=== PATIENT | female | born 1950 | race Caucasian/White ===

== ENCOUNTER → 2017-02-15 | Outpatient (CLI) | payer MEDICARE, OTHER ==
--- NOTE | 2017-02-18 17:27 | MAM ---
EXAM DESCRIPTION: 3D Screening BILATERAL : Digital Mammography. CLINICAL HISTORY: 67 years Female SCREENING . No complaints. No family history breast cancer. Postmenopausal. No HRT. COMPARISON: New Baseline study at this facility. No prior reports available. TECHNIQUE: Bilateral CC and MLO projection full-field images, 3-D tomosynthesis digital mammographic technique. Also bilateral synthesized CC/ MLO full-field images. CAD not utilized. FINDINGS: The breast parenchymal density pattern is: Scattered areas of fibroglandular density. No skin thickening or nipple retraction bilateral solitary microcalcifications. Group of calcifications which appear to be rounded but may be associated with a soft tissue mass in the anterior third of the right breast at the 930 clock position, approximately 5 cm from the nipple. No focal, stellate mass or density, focal asymmetry , and no suspicious microcalcifications left breast. IMPRESSION: BI-RADS CATEGORY: 0 - INCOMPLETE- Need additional imaging evaluation. FOLLOW-UP: Recall for additional imaging: Digital two-dimensional full-field and spot magnification of the group of microcalcifications in the right breast, CC and MLO projections. 3-D tomosynthesis full field LM images right breast. Targeted right breast ultrasound. Written communication concerning the IMPRESSION and Follow-up, will be mailed to the patient and referring health care provider. Electronically signed by: Jermaine Faustin MD 02/18/2017 5:[address] [facility]
== END ==
LOC: MAMMO 14:34
PROVIDERS: ATTEND Emergency Medicine
DX: Z12.31 Encounter for screening mammogram for malignant neoplasm of breast (principal)
CPT/HCPCS: 77063; G0202

== ENCOUNTER → 2017-03-31 | Outpatient (CLI) | payer OTHER ==
--- NOTE | 2017-03-31 12:43 | MAM ---
EXAM DESCRIPTION: 3D Diagnostic, Right: Digital Mammography CLINICAL HISTORY: 67 yearsFemaleABNORMAL MAMMO abnormal group of calcifications in the anterior right breast.. COMPARISON: 3-D tomosynthesis bilateral screening mammography 02/15/2017. Targeted right breast ultrasound following this examination. Report from prior examination also reviewed. TECHNIQUE: Right breast LM projection full-field images, 3-D tomosynthesis digital mammographic technique. Also right breast synthesized LM full-field images. 2-D digital spot compression anterior superior lateral right breast in the CC and LM projections. CAD utilized for 2-D images. FINDINGS: Right breast parenchymal density pattern is: Scattered areas of fibroglandular density. No skin thickening or nipple retraction . The spot compression images show a small group of heterogeneous and pleomorphic calcifications of varying CCA and sizes at the 1000 clock position of the anterior right breast in the upper outer quadrant, approximately 5 cm from the nipple. Soft tissue density associated with these calcifications with partially well-defined and partially spiculated margins. Tissue is similar density to the surrounding fibroglandular tissues. This tissue appears almost two-dimensional on the LM full-field images ULTRASOUND: Scanning at the 1000 clock position of the right breast, 5 cm from the nipple. Poorly-defined hypoechoic tissue is visualized measuring approximately 7.2 x 8.2 mm. Difficult to determine if parallel orientation to the skin or chest wall. Echogenic regions assumed to represent calcifications. Significant posterior acoustic shadowing. Mass is not vascular. No adjacent discrete solid mass or cyst. No skin changes or parenchymal edema. IMPRESSION: BI-RADS CATEGORY: 4 - SUSPICIOUS. SUB - CATEGORY 4B: MODERATE SUSPICION FOR MALIGNANCY. Please refer to digital diagnostic right breast mammographic examination and report on this visit. The FINDINGS and various follow-up plans were reviewed in person with the patient, and patient's daughter, Yessica Shabazz, after the examination. Written communication explaining the IMPRESSION and follow-up will be mailed to the patient and referring care provider. CRITICAL COMMUNICATION: The critical value was discussed directly by phone with Dr. Nolan Jackson at approximately 1220 hours, on March 31, 2017. Electronically signed by: Jermaine Faustin MD 03/31/2017 12:[address] OFFICE ASSISTANT
--- NOTE | 2017-03-31 12:49 | US ---
EXAM DESCRIPTION: Breast,Right: Ultrasound CLINICAL HISTORY: 67 yearsFemaleABNORMAL MAMMO. COMPARISON: Digital 2-D/3-D diagnostic mammogram right breast on this visit. TECHNIQUE: Transcutaneous scanning of the upper outer quadrant right breast utilizing two-dimensional and Doppler modes. Scanning performed by the director of graduate admissions and Dr. Faustin. FINDINGS: Scanning at the 1000 clock position of the right breast, 5 cm from the nipple. Poorly-defined hypoechoic tissue is visualized measuring approximately 7.2 x 8.2 mm. Difficult to determine if parallel orientation to the skin or chest wall. Echogenic regions assumed to represent calcifications. Significant posterior acoustic shadowing. Mass is not vascular. No adjacent discrete solid mass or cyst. No skin changes or parenchymal edema. IMPRESSION: 1. BI-RADS Category 4: SUSPICIOUS - Subcategory 4B: Moderate Suspicion For Malignancy. 2. Tissue diagnosis is recommended if there are no clinical contraindications. Please refer to digital diagnostic right breast mammographic examination and report on this visit. The FINDINGS and follow up were discussed in person with the patient following the examination. Written communication explaining the IMPRESSION and follow-up, will be mailed to the patient and referring health care provider. CRITICAL COMMUNICATION: The critical value was discussed directly by phone with Dr. Nolan Jackson at approximately 1220 hours, on March 31, 2017. Electronically signed by: Jermaine Faustin MD 03/31/2017 12:48 PM [employer]
== END ==
LOC: MAMMO 08:58
PROVIDERS: ATTEND Emergency Medicine
DX: R92.8 Other abnormal and inconclusive findings on diagnostic imaging of breast (principal)
CPT/HCPCS: 76641; 77065; G0279

== ENCOUNTER → 2020-01-30 | Outpatient (CLI) | payer MEDICARE ==
--- NOTE | 2020-02-01 19:43 | MAM ---
EXAM DESCRIPTION: 3D Screening BILATERAL : Digital Mammography. CLINICAL HISTORY: 70 years Female SCREENING . No complaints. Remote family history of breast cancer. Menarche 14. Childbirth age 23. Menopause age 57. No HRT.. Lifetime risk of developing breast cancer (Tyrer-Cuzick model)(%): 5.0. COMPARISON: Bilateral screening digital breast tomosynthesis January 2017. Right diagnostic digital breast tomosynthesis and ultrasound March 2017. No prior reports available. TECHNIQUE: Bilateral CC and MLO projection full-field images, digital tomosynthesis mammographic technique. Bilateral digital 2-D full-field MLO images. CAD available for 2-D images. MLO images limited by superior axillary fat. FINDINGS: The breast parenchymal density pattern is: Scattered areas of fibroglandular density. Coarse and small calcifications associated with soft tissue density again noted in the anterior third of the upper-outer quadrant of the right breast 5 cm from the nipple at 10:00. More coarse calcifications within the soft tissue density compared to the prior study. Most likely a degenerating fibroadenoma. Solitary microcalcifications bilaterally. Vascular calcifications. Increased solitary microcalcifications in the anterior left breast. No skin thickening or nipple retraction No new focal, stellate mass or density, focal asymmetry , and no suspicious microcalcifications bilaterally. IMPRESSION: Benign exam. BIRAD CATEGORY: 2 BENIGN FINDINGS. RECOMMENDATIONS: FOLLOW UP: Routine digital bilateral mammographic screening, one year interval from January 2020. Written communication explaining the IMPRESSION and follow-up, will be mailed to the patient and referring health care provider. According to the [employer], yearly mammograms are recommended starting at age 40 and continuing as long as a woman is in good health. Any breast change noted on a breast self-exam should be reported promptly to the patient's healthcare provider. Breast MRI is recommended for women with an approximately 20-25% or greater lifetime risk of breast cancer, including women with a strong family history of breast or ovarian cancer and women who have been treated for Hodgkin's disease. A negative mammographic report should not delay tissue diagnosis in patients with significant clinical history or physical findings. Extremely dense breast tissue limits the sensitivity of digital mammography. Electronically signed by: Jermaine Faustin MD 02/01/2020 7:28 PM [facility]
== END ==
LOC: MAMMO 11:00
PROVIDERS: ATTEND Emergency Medicine
DX: Z12.31 Encounter for screening mammogram for malignant neoplasm of breast (principal)